=== PATIENT | female | born 1990 | race Caucasian/White ===

== ENCOUNTER 2016-12-10 10:41 | Emergency (ER) | payer BC ==
[~2016-12-10] VITALS: Ht 157.5 cm; Wt 65.0 kg
[~2016-12-10 10:41] MED LIST: ACET500C5 PO
[2016-12-10 10:49] VITALS: Ht 157.5 cm; Wt 65.0 kg
[2016-12-10] MEDS ORDERED: SOD CHLORIDE 0.9% 1,000 ML IV STA (12:28)
[2016-12-10] MEDS ORDERED: ONDANSETRON 4 MG INJ IV STA (12:28)
[2016-12-10] MEDS ORDERED: morphine 4 MG/ML VIAL IV STA (12:28)
[2016-12-10] MEDS ORDERED: FAMOTIDINE 20 MG INJ IV STA (12:28)
[2016-12-10] MEDS ORDERED: KETOROLAC 30 MG INJ IV STA (12:51)
[2016-12-10 12:53] LABS: ADD SCAN DIFF NO
[2016-12-10 12:54] LABS: BASOPHILS % 0.3 % (0.0-2.0); EOSINOPHILS # 0.1 10^3/ul (0.0-0.5); HEMATOCRIT 43.9 % (37.0-47.0); HEMOGLOBIN 14.5 g/dl (12.0-16.0); LYMPHOCYTES # 2.7 10^3/ul (0.8-2.9); LYMPHOCYTES % 23.8 % (15.0-51.0); MEAN CORPUSCULAR HEMOGLOBIN 29.4 pg (29.0-33.0); MEAN CORPUSCULAR VOLUME 88.9 fl (82.0-101.0); MEAN PLATELET VOLUME 11.5 fl (7.4-10.4); MONOCYTE # 0.6 10^3/ul (0.3-0.9); MONOCYTES % 5.5 % (0.0-11.0); NEUTROPHIL # 7.8 10^3/ul (1.6-7.5); PLATELET COUNT 383 10^3/UL (140-415); RED BLOOD COUNT 4.94 10^6/ul (4.20-5.40); RED CELL DISTRIBUTION WIDTH 12.3 % (11.5-14.5); WHITE BLOOD COUNT 11.3 10^3/ul (4.8-10.8)
[2016-12-10 12:57] LABS: ADD UMIC YES; URINE BILIRUBIN (Dip) NEGATIVE (NEGATIVE); URINE BLOOD (Dip) NEGATIVE (NEGATIVE); URINE COLOR LT. YELLOW (YELLOW); URINE GLUCOSE (Dip) NEGATIVE (NEGATIVE); URINE KETONES (Dip) NEGATIVE (NEGATIVE); URINE LEUKOCYTE ESTERASE (Dip) TRACE (NEGATIVE); URINE NITRITE (Dip) NEGATIVE (NEGATIVE); URINE TOTAL PROTEIN (Dip) NEGATIVE (NEGATIVE); URINE UROBILINOGEN (Dip) 0.2 E.U./dL (0.1-1.0)
[2016-12-10 13:12] LABS: ALBUMIN 4.6 g/dl (3.3-4.9)
[2016-12-10 13:13] LABS: POTASSIUM 3.6 mmol/L (3.5-5.1)
[2016-12-10 13:15] LABS: BILIRUBIN,INDIRECT 0.2 mg/dl (0-1.1); BILIRUBIN,TOTAL 0.2 mg/dl (0.2-1.3); CREATININE 0.59 mg/dl (0.44-1.00)
[2016-12-10 13:16] LABS: ALBUMIN/GLOBULIN RATIO 1.35; CALCIUM 9.9 mg/dl (8.4-10.2)
--- NOTE | 2016-12-10 13:25 | RADRPT ---
PROCEDURE: CT Abdomen and Pelvis without contrast CLINICAL INDICATION: Basilia umbilical abdominal pain TECHNIQUE: Transaxial images were obtained through the abdomen and pelvis on a multi-slice scanner without the intravenous contrast administration. No oral contrast had previously been given. Sagit alberto and coronal re-formations were subsequently reconstructed. One or more of the following dose reduction techniques were used: - Automated exposure control. - Adjustment of the mA and/or kV according to patient size. - Use of iterative reconstruction technique. Radiation dose: CTDIvol = 10.54 mGy; DLP = 615.34 mGy-cm. COMPARISON: No prior studies are available for comparison. FINDINGS: Lung bases: The visualized lung bases appear unremarkable. Liver: Normal in size and in attenuation. There is no focal lesion. Gallbladder: The wall is not thickened. No radiopaque stones are identified. Bile ducts: The intra and extrahepatic bile ducts are normal in caliber. Pancreas: Appears normal with no mass or inflammation evident. Spleen: Normal in size with no focal lesion. Adrenals: Normal with no mass identified. Kidneys, ureters and bladder: The kidneys are normal in size and there is no mass, pathological calc ification, or hydronephrosis evident. There is no perinephric stranding. The ureters are normal in c aliber and no ureteroliths are identified. The bladder appears unremarkable. Reproductive organs: The uterus is lobulated in contour suspicious for uterine fibroids. No adnexal mass is evident. Stomach and bowel: The stomach appears normal. Substantial stool seen within the colon. There is n o evidence of bowel obstruction or inflammation. Appendix: The vermiform appendix is normal in caliber. An appendicolith is evident but no inflammat ory changes are seen about the appendix. Peritoneum: No free intraperitoneal fluid or air is identified. Aorta: Normal in caliber with no aneurysmal dilatation. IVC: Unremarkable. Lymph nodes: No pathologically enlarged nodes are identified. Osseous structures: The osseous elements appear intact. IMPRESSION: 1. Substantial stool seen within the colon without evidence of bowel obstruction or inflammation. A n appendicolith is seen within the vermiform appendix which is not dilated and there are no inflamma tory changes surrounding the appendix to suggest acute appendicitis. 2. No evidence of urinary outflow obstruction or ureterolithiasis. 3. Lobulated contour to the uterus suspicious for subserosal fibroids. No adnexal mass is evident. Ashely Torres Physician Date Time Electronically viewed and signed by Ashely Torres Physician on 12/10/2016 13:24 /
[2016-12-10] MEDS ORDERED: FAMO-18 PO (13:59)
[2016-12-10] MEDS ORDERED: ONDA4TAB8 PO (13:59)
[2016-12-10 14:13] VITALS: BP 102/56; PULSE 68; RESP 18; TEMP 98.1
--- NOTE | 2016-12-10 15:48 | ERD ---
ER Documentation Chief Complaint Date/Time DATE: 12/10/16 TIME: 15:46 Chief Complaint ap x 2 hrs HPI This is a 26-year-old female presents to the ER with epigastric pain for the last 2 hours. Patient states that epigastric pain is severe and constant she has had nausea and diarrhea she denies any vomiting. Patient went to her primary care doctor and he sent her to the ER. She denies any fevers or chills. She denies traveling anywhere. She has not eaten anything different. Epigastric pain is throbbing in quality it radiates throughout her entire abdomen. She denies any back pain. She denies any urinary frequency or dysuria. She denies any vaginal discharge. Patient denies any chest pain or shortness of breath. ROS 12 point review of systems was done, all negative except per HPI. Medications Home Meds Active Scripts Famotidine* (Pepcid*) 20 Mg Tablet, 20 MG PO BID for 4 Days, TAB Prov:YE SALCIDO C 12/10/16 Ondansetron Hcl* (Zofran*) 4 Mg Tablet, 4 MG PO Q6H for NAUSEA AND/OR VOMITING, #30 TAB Prov:DAWODO SALCIDONA C 12/10/16 Acetaminophen* (Tylophen*) 500 Mg Capsule, 1 CAP PO Q6H Y for PAIN AND OR ELEVATED TEMP, #20 CAP Prov:SAVANNAH GUERRA PA-C 02/05/16 Allergies Allergies: Coded Allergies: No Known Allergy (Unverified , 05/14/16) PMhx/Soc Medical and Surgical Hx: pt denies Medical Hx, pt denies Surgical Hx Hx Alcohol Use: No Hx Substance Use: No Hx Tobacco Use: No Physical Exam Vitals Vital Signs Date Time Temp Pulse Resp B/P Pulse Ox O2 Delivery O2 Flow Rate FiO2 12/10/16 14:13 98.1 68 18 102/56 98 Room Air 12/10/16 10:49 98.1 74 18 128/79 99 Physical Exam GENERAL: The patient is well developed and appropriate for usual state of health , in no apparent distress. HEENT: Atraumatic. CHEST: Clear to auscultation bilaterally. There are no rales, wheezes or rhonchi. HEART: Regular rate and rhythm. No murmurs, clicks, rubs or gallops. ABDOMEN: Soft, nontender and nondistended. Good bowel sounds. No rebound or guarding. No gross peritonitis. No gross organomegaly or masses. No Montano sign or McBurney point tenderness. BACK: No midline or flank tenderness. NEURO: Alert and oriented. SKIN: The skin is warm and dry. Result Diagram: 12/10/16 1245 12/10/16 1245 Results 24 hrs Laboratory Tests Test 12/10/16 12:40 12/10/16 12:45 Urine Bilirubin NEGATIVE Urine Clarity CLEAR Urine Color LT. YELLOW Urine Epithelial Cells FEW Urine Glucose NEGATIVE% Urine Hemoglobin NEGATIVE Urine Ketones NEGATIVE Urine Leukocyte Esterase TRACE Urine Microscopic RBC 2-5/HPF Urine Microscopic WBC 5-10/HPF Urine Nitrite NEGATIVE Urine Specific Gaffney 1.010 Urine Total Protein NEGATIVE Urine Urobilinogen 0.2 E.U./dL Urine pH 6.0 Alanine Aminotransferase (ALT/SGPT) 33IU/L Albumin 4.6g/dl Albumin/Globulin Ratio 1.35 Alkaline Phosphatase 118IU/L Anion Gap 20 Aspartate Amino Transf (AST/SGOT) 47IU/L Basophils # 0.010^3/ul Basophils % 0.3% Blood Urea Nitrogen 10mg/dl Calcium Level 9.9mg/dl Carbon Dioxide Level 27mmol/L Chloride Level 102mmol/L Creatinine 0.59mg/dl Direct Bilirubin 0.00mg/dl Eosinophils # 0.110^3/ul Eosinophils % 1.0% Globulin 3.40g/dl Glucose Level 92mg/dl Hematocrit 43.9% Hemoglobin 14.5g/dl Indirect Bilirubin 0.2mg/dl Lipase 56U/L Lymphocytes # 2.710^3/ul Lymphocytes % 23.8% Mean Corpuscular Hemoglobin 29.4pg Mean Corpuscular Hemoglobin Concent 33.0g/dl Mean Corpuscular Volume 88.9fl Mean Platelet Volume 11.5fl Monocytes # 0.610^3/ul Monocytes % 5.5% Neutrophils # 7.810^3/ul Neutrophils % 69.0% Nucleated Red Blood Cells # 0.010^3/ul Nucleated Red Blood Cells % 0.0/100WBC Platelet Count 50723^3/UL Potassium Level 3.6mmol/L Red Blood Count 4.9410^6/ul Red Cell Distribution Width 12.3% Sodium Level 145mmol/L Total Bilirubin 0.2mg/dl Total Protein 8.0g/dl White Blood Count 11.310^3/ul Current Medications Medications (Trade) Dose Ordered Sig/Katie Route PRN Reason Start Time Stop Time Status Last Admin Dose Admin Sodium Chloride (NS) 1,000 ml @ 1,000 mls/hr Q1H STAT IV 12/10/16 12:28 12/10/16 13:27 DC 12/10/16 12:45 Morphine Sulfate (morphine) 4 mg ONCE STAT IV 12/10/16 12:28 12/10/16 12:52 DC Ondansetron HCl (Zofran Inj) 4 mg ONCE STAT IV 12/10/16 12:28 12/10/16 12:31 DC 12/10/16 12:45 Famotidine (Pepcid Iv) 20 mg ONCE STAT IV 12/10/16 12:28 12/10/16 12:31 DC 12/10/16 12:45 Ketorolac Tromethamine (Toradol) 30 mg ONCE STAT IV 12/10/16 12:51 12/10/16 12:52 DC 12/10/16 13:15 Procedures/MDM Differential Diagnosis: GERD, gastritis, peptic ulcer disease, pancreatitis, cholecystitis, choledocholithiasis, biliary colic, cholangitis, Birc-Hjxe-Kwezal , ACS/PA, Pnuemonia. At this time etiology of abdominal pain is unknown however there is no evidence for acute abdomen. Patient's abdominal exam was benign. She is afebrile and well-appearing. She will be sent home with Zofran with famotidine. She is to follow-up with her primary care doctor within 1-2 days or return to ER sooner if symptoms worsen. My medical decision making was shared with the patient she understands and agrees with plan. Departure Diagnosis: Primary Impression: Epigastric pain Condition: Stable Patient Instructions: Epigastric Pain (Uncertain Cause) Additional Instructions: Call your primary care doctor TOMORROW for an appointment during the next 1-2 days.See the doctor sooner or return here if your condition worsens before your appointment time. YE SALCIDO Dec 10, 2016 15:48
== END 2016-12-10 14:15 | disposition home or self-care (01) ==
LOC: FTE 10:41
DX: R10.13 Epigastric pain (principal); R11.0 Nausea
CPT/HCPCS: 36415; 74176; 80053; 81001; 81003; 83690; 85025; 96374; 96375; 99285; J1885; J2405; J7030; J2270